=== PATIENT | male | born 1980 | race Caucasian/White ===

== ENCOUNTER 2018-09-12 19:56 | Outpatient (CLI) | END 2018-09-12 20:25 | disposition short-term general hospital (02) | LOC: AMBL 19:56 | PROVIDERS: ATTEND Family Medicine | DX: F10.10 Alcohol abuse, uncomplicated (principal); F41.9 Anxiety disorder, unspecified; E46 Unspecified protein-calorie malnutrition; R00.0 Tachycardia, unspecified; R11.0 Nausea ==